=== PATIENT | female | born 1990 | race Caucasian/White ===

== ENCOUNTER 2016-08-21 13:35 | Emergency (ER) | payer MEDICAID ==
[~2016-08-21] VITALS: Ht 165.1 cm; Wt 62.8 kg
[~2016-08-21 13:35] MED LIST: PERC5TAB12 PO; PREN0.01 PO; TUMS500C CHEW
[2016-08-21 13:40] VITALS: BP 123/77; PULSE 95; RESP 18; TEMP 98.4; O2SAT 98
[2016-08-21] MEDS ORDERED: AMOX500C PO (14:05)
--- NOTE | 2016-08-21 14:06 | PD ---
HPI Chief Complaint: ENT Complaint Time Seen by Provider: 14:03 Travel History International Travel<30 days: No Contact w/Intl Traveler<30days: No Traveled to known affect area: No History of Present Illness HPI This 26-year-old female is complaining of sore throat. She's had a sore throat for 3 or 4 days. Her swollen. She is on control pills. She has had a slight cough. There's been no vomiting or diarrhea. PFSH Past Medical History ADD: Yes ADHD: Yes (PT ADD) Asthma: Yes (EXERCISED INDUCED IN THE PAST) Cancer: No Cardiovascular Problems: No Diabetes: No Diminished Hearing: No Psychiatric: No Immunizations Current: Yes Migraines: No Seizures: No Thyroid Disease: No Ulcer: No ?: Not LMP: LAST WEEK : 1 Para: 0 Past Surgical History Appendectomy: No Cholecystectomy: No Social History Alcohol Use: No Tobacco Use: Yes (she stopped smoking about 2 months ago) Substance Use: No Allergies-Medications (Allergen,Severity, Reaction): Coded Allergies: Zithromax (Verified Allergy, Mild, Hives, 08/21/16) Reported Meds & Prescriptions Reported Meds & Active Scripts Active No Active Prescriptions or Reported Medications Review of Systems General / Constitutional: No: Fever, Chills Eyes: No: Diploplia HENT: Positive: Sore Throat Cardiovascular: No: Chest Pain or Discomfort Respiratory: Positive: Cough Gastrointestinal: No: Vomiting, Diarrhea Genitourinary: No: Urgency Skin: No Rash Physical Exam Narrative GENERAL: Well-developed female SKIN: Focused skin assessment warm/dry. HEAD: Atraumatic. Normocephalic. EYES: Pupils equal and round. No scleral icterus. No injection or drainage. ENT: No nasal bleeding or discharge. Mucous membranes pink and moist. NECK: Trachea midline. No JVD. Pharynx is erythematous with some bilateral anterior cervical nodes CARDIOVASCULAR: Regular rate and rhythm. No murmur appreciated. RESPIRATORY: No accessory muscle use. Clear to auscultation. Breath sounds equal bilaterally. GASTROINTESTINAL: Abdomen soft, non-tender, nondistended. Hepatic and splenic margins not palpable. MUSCULOSKELETAL: No obvious deformities. No clubbing. No cyanosis. No edema. NEUROLOGICAL: Awake and alert. No obvious cranial nerve deficits. Motor grossly within normal limits. Normal speech. PSYCHIATRIC: Appropriate mood and affect; insight and judgment normal. Data Data Last Documented VS Vital Signs Date Time Temp Pulse Resp B/P Pulse Ox O2 Delivery O2 Flow Rate FiO2 08/21/16 13:40 98.4 95 18 123/77 98 MDM Medical Decision Making Medical Screen Exam Complete: Yes Emergency Medical Condition: Yes Medical Record Reviewed: Yes Differential Diagnosis Differential includes strep pharyngitis, viral pharyngitis Narrative Course A she'll be treated for strep pharyngitis with amoxicillin Diagnosis Primary Impression: Pharyngitis Scripts Amoxicillin 500 Mg [id number] Mg PO TID 10 Days Ref 0 Prov:Lopez Mccoy MD 08/21/16 Disposition: DISCHARGE HOME Condition: Stable Lopez Mccoy MD August 21, 2016 14:06
== END 2016-08-21 14:21 | disposition home or self-care (01) ==
LOC: PHEFT 13:35
DX: J02.9 Acute pharyngitis, unspecified (principal); R05 Cough; Z87.891 Personal history of nicotine dependence; Z88.8 Allergy status to other drugs, medicaments and biological substances
CPT/HCPCS: 99283

== ENCOUNTER 2016-09-06 15:25 | Emergency (ER) | payer OTHER, MEDICAID ==
[~2016-09-06] VITALS: Ht 165.1 cm; Wt 60.0 kg
[~2016-09-06 15:25] MED LIST changes: +AMOX500C PO; -PERC5TAB12 PO; -PREN0.01 PO; -TUMS500C CHEW
[2016-09-06 15:40] VITALS: BP 127/74; PULSE 79; RESP 18; TEMP 97.7; O2SAT 98
[2016-09-06] MEDS ORDERED: SODIUM CHLORIDE 0.9% FLUSH 10 ML FLUSH IVF PRN (16:30)
[2016-09-06 16:44] VITALS: BP 128/62; PULSE 60; RESP 20; TEMP 98.5; O2SAT 100
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
[2016-09-06 17:24] LABS: AUTOMATED NEUTROPHIL # 3.7 TH/MM3 (1.8-7.7); BASOPHIL % 0.7 % (0.0-2.0); EOSINOPHIL # 0.1 TH/MM3 (0-0.4); EOSINOPHIL % 2.3 % (0.0-4.0); HEMATOCRIT 40.4 % (35.0-46.0); HEMO FLAGS DIFF FINAL; LYMPH % 33.2 % (9.0-44.0); LYMPHOCYTE # 2.1 TH/MM3 (1.0-4.8); MEAN CELL VOLUME 84.2 FL (80.0-100.0); MEAN CORPUSCULAR HGB CONC 34.4 % (32.0-36.0); MONO % 5.1 % (0.0-8.0); NEUT % 58.7 % (16.0-70.0); PLATELET COUNT 266 TH/MM3 (150-450); RED CELL DISTRIBUTION WIDTH 12.9 % (11.6-17.2); WHITE BLOOD COUNT 6.4 TH/MM3 (4.0-11.0)
[2016-09-06 17:48] LABS: BICARBONATE 23.2 MEQ/L (21.0-32.0); POTASSIUM 3.5 MEQ/L (3.5-5.1)
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
[2016-09-06] MEDS ORDERED: IBUP-232 PO (18:19)
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
== END 2016-09-06 19:14 | disposition home or self-care (01) ==
LOC: NEPE 15:25
DX: S06.0X0A Concussion without loss of consciousness, initial encounter (principal); S90.512A Abrasion, left ankle, initial encounter; V13.4XXA Pedal cycle driver injured in collision with car, pick-up truck or van in traffic accident, initial encounter; Y93.55 Activity, bike riding
CPT/HCPCS: 70450; 71010; 72125; 73610; 80048; 85025

== ENCOUNTER 2016-09-09 13:16 | Emergency (ER) | payer OTHER, MEDICAID ==
[~2016-09-09] VITALS: Ht 165.1 cm; Wt 63.0 kg
[~2016-09-09 13:16] MED LIST changes: -AMOX500C PO; +IBUP-232 PO
[2016-09-09 13:18] VITALS: BP 113/84; PULSE 77; RESP 16; TEMP 97.8; O2SAT 97
[2016-09-09] MEDS ORDERED: BACT800T5 PO (13:45)
[2016-09-09] MEDS ORDERED: ORPH100T99 PO (13:45)
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
== END 2016-09-09 14:00 | disposition home or self-care (01) ==
LOC: PHED 13:16
DX: S16.1XXA Strain of muscle, fascia and tendon at neck level, initial encounter (principal); S40.212A Abrasion of left shoulder, initial encounter; L08.9 Local infection of the skin and subcutaneous tissue, unspecified; J45.909 Unspecified asthma, uncomplicated; F17.210 Nicotine dependence, cigarettes, uncomplicated; V13.4XXA Pedal cycle driver injured in collision with car, pick-up truck or van in traffic accident, initial encounter; Y93.55 Activity, bike riding; Y92.410 Unspecified street and highway as the place of occurrence of the external cause; Y99.8 Other external cause status
CPT/HCPCS: 84703; 99284